=== PATIENT | male | born 1970 | race African-American/Black ===

== ENCOUNTER 2017-01-06 15:49 | Outpatient (CLI) | payer OTHER ==
--- NOTE | 2017-01-06 17:19 | ULT ---
BILATERAL RENAL ULTRASOUND WITH DOPPLER: Date: 01/06/17 HISTORY: Essential hypertension. FINDINGS: The right kidney measures 11.3 cm in length and the left kidney measures 11.4 cm in length. There is an 8.0 mm cyst in the right kidney. No hydronephrosis is seen on either side. Cortical echogenicity and thickness is otherwise normal. The peak systolic velocity in the right renal artery measures 84 cm/second and the left renal artery measures 126 cm/second. The renal artery to aortic ratio measures 0.57 on the right and 0.86 on the left. Resistive indices measure 0.75 on the right and 0.70 on the left. IMPRESSION: 1. Right renal cyst. 2. No sonographic evidence of hemodynamically significant renal artery stenosis. POS: [facility]
== END 2017-01-06 15:50 | disposition home or self-care (01) ==
LOC: ULT 15:49
PROVIDERS: ATTEND Family Medicine
DX: I10 Essential (primary) hypertension (principal); N28.1 Cyst of kidney, acquired
CPT/HCPCS: 76700; 76770

== ENCOUNTER 2017-04-20 10:59 | Emergency (ER) | payer OTHER ==
[2017-04-20] MEDS ORDERED: Nitroglycerin 2% Ointment 1 INCH/1 GM Packet ONE (12:10)
--- NOTE | 2017-04-20 12:19 | RAD ---
PORTABLE CHEST: Date: 04/20/17 PROVIDED CLINICAL HISTORY: Chest pain. FINDINGS: Comparison made with study dated 12/08/14. Evaluation is limited by patient body habitus. The cardiac silhouette remains enlarged. No focal cons olidation, pleural fluid, or pneumothorax apparent. IMPRESSION: Cardiomegaly without evidence for an acute cardiopulmonary process. POS: [facility]
[2017-04-20 12:23] LABS: #Basophils 0.1 thou/uL (0.0-0.2); #Eosinphils 0.2 thou/uL (0.0-0.7); #Lymphocytes 2.3 thou/uL (1.20-3.40); #Monocytes 0.6 thou/uL (0.11-0.59); #Neutrophils 4.3 thou/uL (1.40-6.50); %Basophils 1.6 % (0.0-1.0); %Eosinophils 2.7 % (0.0-10.0); %Lymphocytes 30.7 % (21.0-51.0); %Monocytes 7.4 % (0.0-10.0); %Neutrophils 57.6 % (42.0-75.0); Hemoglobin 13.8 g/dL (14.0-18.0); Mean Corpuscular HGB CONC 32.4 g/dL (32.0-36.0); Mean Corpuscular Hemoglobin 29.7 pg (27.0-31.0); Mean Corpuscular Volume 91.5 fl (80.0-94.0); Mean Platelet Volume 7.8 fL (7.4-10.4); Platelet Count 269 thou/uL (130-400); RBC Distribution Width 10.9 % (11.5-14.5); Red Blood Cell (RBC) Count 4.64 mill/uL (4.70-6.10); White Blood Cell (WBC) Count 7.4 thou/uL (4.8-10.8)
[2017-04-20 12:29] LABS: Anion Gap 12 mmol/L (10-20); BUN (Urea Nitrogen) 14 mg/dL (8.9-20.6); CK (CPK) 473 U/L (30-200); CRP (Inflammatory) 0.83 mg/dL (= or < 0.5); Calc. Creatinine Clearance 0 mL/min (70-130); Calcium 8.9 mg/dL (7.8-10.44); Carbon Dioxide 29 mmol/L (22-29); Chloride 102 mmol/L (98-107); Estimated GFR-MDRD Greater than 90; Glucose 226 mg/dL (70-105); Lipase 20 U/L (8-78); Potassium 3.3 mmol/L (3.5-5.1); Sodium 140 mmol/L (136-145)
--- NOTE | 2017-04-20 12:29 | RAD ---
LEFT FORELEG RADIOGRAPHS TWO VIEWS: Date: 04-20-17 Provided Clinical History: Left leg pain and swelling. FINDINGS: There is no evidence for fracture or other acute osseous abnormality. 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 The soft tissues appear somewhat lucent overlying the posterior aspe ct of the calcaneus with several nonspecific foci of increased density. IMPRESSION: No evidence for an acute osseous abnormality. POS: [facility]
[2017-04-20 12:31] LABS: CKMB 4.9 ng/mL (0-6.6); Troponin I 0.053 ng/mL (< 0.028)
[2017-04-20] MEDS ORDERED: Lisinopril 10 MG TAB ONE (12:55)
[2017-04-20] MEDS ORDERED: Ketorolac Tromethamine 60 MG/2 ML VIAL ONE (12:56)
[2017-04-20 13:59] LABS: Troponin I 0.063 ng/mL (< 0.028)
[2017-04-20] MEDS ORDERED: cloNIDine 0.1 MG TAB ONE (14:09)
== END 2017-04-20 14:58 | disposition home or self-care (01) ==
LOC: SCSER 10:59
DX: E11.622 Type 2 diabetes mellitus with other skin ulcer (principal); L97.929 Non-pressure chronic ulcer of unspecified part of left lower leg with unspecified severity; I10 Essential (primary) hypertension; F17.210 Nicotine dependence, cigarettes, uncomplicated; Z79.899 Other long term (current) drug therapy; Z79.891 Long term (current) use of opiate analgesic
CPT/HCPCS: 71045; 80048; 82550; 82553; 83605; 83690; 83880; 84484; 85025; 85652; 86140; 87040; 87070; 87077; 87186; 87205; 93005; 96372; J1885

== ENCOUNTER 2017-04-29 11:05 | Emergency (ER) | payer OTHER ==
[2017-04-29] MEDS ORDERED: Bacitracin Zinc 1 Packet ONE (12:07)
== END 2017-04-29 12:31 | disposition home or self-care (01) ==
LOC: SCSER 11:05
DX: E11.622 Type 2 diabetes mellitus with other skin ulcer (principal); L97.929 Non-pressure chronic ulcer of unspecified part of left lower leg with unspecified severity; I10 Essential (primary) hypertension; F17.210 Nicotine dependence, cigarettes, uncomplicated; Z79.4 Long term (current) use of insulin; Z79.899 Other long term (current) drug therapy
CPT/HCPCS: 99282

== ENCOUNTER 2017-05-03 13:49 | Outpatient (CLI) | payer OTHER ==
--- NOTE | 2017-05-03 19:36 | HP ---
DATE OF SERVICE: 05/03/2017 HISTORY OF PRESENT ILLNESS: Mr. Syed Ordonez is a very pleasant 46-year-old gentleman who pres ents to the Wound Center for evaluation of an ulceration of the left lower leg. The patient states t hat the ulceration has been present for approximately 4 months. The patient states that an ultrasoun d of the left lower extremity was obtained at the time of a visit with Dr. Norbert Wheeler. Appare ntly, the patient has a followup visit with Dr. Wheeler at which time he will receive the results o f the left lower extremity ultrasound. The patient has no other complaints today. He denies any fev er or chills. PAST MEDICAL HISTORY: 1. Diabetes mellitus. 2. Hypertension. PAST SURGICAL HISTORY: Negative. MEDICATIONS: 1. Norvasc. 2. Cozaar. 3. Coreg. 4. HCTZ. 5. NovoLog insulin. ALLERGIES: No known diagnosed allergies. SOCIAL HISTORY: Significant for tobacco use for over 20 years. The patient states that he is curren tly smoking 1/4 of a pack of cigarettes per day. The patient states that he has smoked as much as 1 pack of cigarettes per day over this period of time. The patient admits to only the social consumpti on of alcohol. FAMILY HISTORY: Significant for diabetes mellitus. The patient states that his mother and sister we re both diagnosed with diabetes mellitus. Family history is also significant for coronary artery dis ease. The patient states that his mother was diagnosed with coronary artery disease. PHYSICAL EXAMINATION: VITAL SIGNS: Temperature 97.9, pulse 84, respirations 19, blood pressure 226/118. Accu-Chek 276. GENERAL: A 46-year-old gentleman sitting on chair in examination room in no acute distress. HEENT: Normocephalic, atraumatic. NECK: No nuchal rigidity. CHEST: Clear to auscultation. CARDIAC: Regular rate and rhythm. ABDOMEN: Soft. EXTREMITIES: An ulceration of the left lower leg is present which measures approximately 3.3 x 2.5 c m. Granulation tissue is visible within the wound margins. Necrotic and nonviable tissue present wi thin the wound margins was debrided with an excisional full-thickness debridement with the use of sci ssors. No purulent drainage is associated with the wound. No erythema of the skin surrounding the w ound is present. No maceration of the skin of the periwound is noted. A dorsalis pedis pulse is pal pable on the left. Edema of the left foot and lower leg is present on exam today. NEUROLOGIC: Grossly nonfocal. ASSESSMENT AND PLAN: 1. Chronic venous hypertension with ulceration. Silverlon, Webril, and the 3M Coban two-layer compr ession system will be applied to the ulceration today. No antibiotics will be prescribed today based upon the appearance of the wound. I will see Mr. Ordonez again in one week. The patient has been as ked to keep the compression wrap clean and dry until his return visit to the Wound Center in 1 week. The patient understands and is in agreement with the preceding treatment plan. The patient has been given a release in order to return to work. 2. Diabetes mellitus. The patient's Accu-Chek in clinic today is 276. The patient has been told th at for optimal wound healing, his blood glucoses should remain below 150. 3. Hypertension. The patient states that he has nifedipine at home for use as needed for elevated b lood pressures. The patient has been advised to present to the Emergency Department. The patient de clines evaluation and treatment in the emergency department today. He states he will take p.o. nifed ipine at home as previously prescribed for elevated blood pressures. He states he will also contact his primary care physician, Dr. Vang in regard to his blood pressure obtained in clinic today.
[2017-05-05] MEDS ORDERED: Sodium Chloride 0.9% 15 ML NEB ONE (15:51)
[2017-05-05] MEDS ORDERED: Lidocaine 2% Jelly 5 ML TUBE ONE (15:51)
== END 2017-05-03 13:50 | disposition home or self-care (01) ==
LOC: WCC 13:49
PROVIDERS: ATTEND Family Medicine
DX: I87.312 Chronic venous hypertension (idiopathic) with ulcer of left lower extremity (principal); L97.929 Non-pressure chronic ulcer of unspecified part of left lower leg with unspecified severity; E11.622 Type 2 diabetes mellitus with other skin ulcer; I10 Essential (primary) hypertension
CPT/HCPCS: 11042; 36416; 99203; G0463

== ENCOUNTER 2017-05-10 11:36 | Outpatient (CLI) | payer OTHER ==
--- NOTE | 2017-05-10 14:39 | PRG ---
DATE OF SERVICE: 05/10/2017 HISTORY: Mr. Sunday Ordonez is a very pleasant 46-year-old gentleman who presents to the Wound Ce nter for evaluation of an ulceration of the left lower leg. The patient stated at the time of his in itial presentation to the Wound Center that the ulceration had been present for approximately 4 month s. At the time the patient's initial visit to the Wound Center, Silverlon, Webril, and 3M Coban 2 la gali compression system were applied to the left lower leg ulceration. The patient reports slippage o f his compression wrap. He has no other complaints today. He denies any fever or chills. PHYSICAL EXAMINATION: VITAL SIGNS: Temperature 98.2, pulse 89, respirations 19, blood pressure 214/132. Accu-Chek 123. EXTREMITIES: An ulceration of the left lower leg is present which measures approximately 3.0 x 3.2 c m. The dimensions of the wound at the time of the patient's last visit were approximately 3.3 x 2.5 cm. Granulation tissue is visible within the wound margins. Necrotic and nonviable tissue present w ithin the wound margins was debrided with an excisional full-thickness debridement with the use of sc issors. No purulent drainage is associated with the wound. No erythema of the skin surrounding the wound is present. No maceration of the skin of the periwound is noted. No significant edema of the left foot is present on exam today. ASSESSMENT AND PLAN: 1. Chronic venous hypertension with ulceration. Silverlon, ABD, Webril, and Coban 2-layer compressi on system will be applied to the ulceration today. I will see Mr. Ordonez again in one week. The pat ient again has been asked to keep the compression wrap clean and dry until his return visit to the [facility] 1 week from today. Mr. Ordonez understands and is in agreement with the preceding treatmen t plan. Again, the patient has been given a release in order to return to work. The patient has als o been given a prescription for Tylenol #30 one to two p.o. q.4-6 hours p.r.n. pain. 2. Diabetes mellitus. The patient's Accu-Chek in clinic today is 123. The patient has been reminde d that for optimal wound healing, his blood glucoses should remain below 150. 3. Hypertension. Again, the patient has been advised to present to the Emergency Department after h is clinic visit today. I have told the patient should he decides not to present to the Emergency Dep artment today after his clinic visit, he should contact his primary care physician, Dr. Vang in regard to the elevated blood pressures recorded at the time of his clinic visits to the Wound Center . The patient states he will consider contacting his primary care physician in regard to the elevate d blood pressures recorded at the time of his clinic visits.
== END 2017-05-10 11:37 | disposition home or self-care (01) ==
LOC: WCC 11:36
PROVIDERS: ATTEND Family Medicine
DX: I87.312 Chronic venous hypertension (idiopathic) with ulcer of left lower extremity (principal); E11.9 Type 2 diabetes mellitus without complications; I10 Essential (primary) hypertension
CPT/HCPCS: 11042; 36416

== ENCOUNTER 2017-05-18 14:26 | Inpatient (IN) | payer OTHER ==
[2017-05-18 15:15] LABS: #Basophils 0.1 thou/uL (0.0-0.2); #Eosinphils 0.2 thou/uL (0.0-0.7); #Lymphocytes 2.9 thou/uL (1.20-3.40); #Monocytes 0.7 thou/uL (0.11-0.59); #Neutrophils 5.2 thou/uL (1.40-6.50); %Basophils 1.6 % (0.0-1.0); %Eosinophils 2.3 % (0.0-10.0); %Lymphocytes 31.6 % (21.0-51.0); %Monocytes 7.9 % (0.0-10.0); %Neutrophils 56.6 % (42.0-75.0); Hemoglobin 14.6 g/dL (14.0-18.0); Mean Corpuscular HGB CONC 34.1 g/dL (32.0-36.0); Mean Corpuscular Hemoglobin 31.8 pg (27.0-31.0); Mean Corpuscular Volume 93.5 fl (80.0-94.0); Mean Platelet Volume 7.4 fL (7.4-10.4); Platelet Count 304 thou/uL (130-400); RBC Distribution Width 11.4 % (11.5-14.5); Red Blood Cell (RBC) Count 4.57 mill/uL (4.70-6.10); White Blood Cell (WBC) Count 9.2 thou/uL (4.8-10.8)
[2017-05-18 15:38] LABS: ALT (SGPT) 17 U/L (8-55); AST (SGOT) 22 U/L (5-34); Albumin 3.8 g/dL (3.5-5.0); Alkaline Phosphatase 59 U/L (40-150); Anion Gap 12 mmol/L (10-20); BUN (Urea Nitrogen) 12 mg/dL (8.9-20.6); Bilirubin, Total 0.8 mg/dL (0.2-1.2); CK (CPK) 491 U/L (30-200); Calc. Creatinine Clearance 0 mL/min (70-130); Calcium 8.8 mg/dL (7.8-10.44); Carbon Dioxide 28 mmol/L (22-29); Chloride 101 mmol/L (98-107); Estimated GFR-MDRD Greater than 90; Globulin 3.9 g/dL (2.4-3.5); Glucose 119 mg/dL (70-105); Potassium 3.4 mmol/L (3.5-5.1); Protein, Total 7.7 g/dL (6.0-8.3); Sodium 138 mmol/L (136-145)
[2017-05-18 15:43] LABS: CKMB 6.6 ng/mL (0-6.6); Troponin I 0.056 ng/mL (< 0.028)
[2017-05-18] MEDS ORDERED: Ibuprofen 800 MG TAB ONE (17:01)
[2017-05-18] MEDS ORDERED: Labetalol HCl 100 MG/20 ML VIAL ONE (18:57)
[2017-05-18] MEDS ORDERED: Acetaminophen 650 MG Suppository PR PRN (20:27)
[2017-05-18] MEDS ORDERED: Bisacodyl 5 MG TAB PO PRN (20:27)
[2017-05-18] MEDS ORDERED: Acetaminophen 325 MG TAB PO PRN (20:27)
[2017-05-18] MEDS ORDERED: cloNIDine 0.1 MG TAB PO PRN (20:31)
[2017-05-18] MEDS ORDERED: Dextrose 50% Abboject 50 ML SYRINGE SLOW IVP PRN (20:31)
[2017-05-18] MEDS ORDERED: Dextrose 5% in Water 1,000 ML IV PRN (20:31)
[2017-05-18] MEDS ORDERED: HumaLOG 300 UNITS/3 ML VIAL SC PRN (20:31)
[2017-05-18] MEDS ORDERED: hydrALAZINE 20 MG/ML VIAL SLOW IVP PRN (20:31)
[2017-05-18] MEDS ORDERED: Labetalol HCl 100 MG/20 ML VIAL SLOW IVP PRN (20:32)
[2017-05-18] MEDS ORDERED: Potassium Chloride 20 MEQ TAB PO SCH (20:45)
--- NOTE | 2017-05-18 21:23 | HP ---
PRIMARY CARE PHYSICIAN: Mack Vang M.D. CHIEF COMPLAINT: High blood pressure. HISTORY OF PRESENT ILLNESS: Mr. Ordonez is a pleasant 46-year-old gentleman who was seen at [facility] on 05/18/2017 after he was sent to the emergency room [facility]. He reports that he has a family history of malignant hypertension. His blood pressure has also been elevated and constantly his systolic blood pressure is in the 200+ range. He started seeing cardiolo gist, Dr. Wheeler about a month ago. He has been compliant with his medications and is currently o n Coreg and Cozaar. I note that he was seen in the [facility] on 05/10/2017. At that time, he was found to have e levated blood pressure. He was advised to follow up with his primary care physician if the blood pre ssure continues to be elevated. He went to the [facility]ound Care Clinic again today. His blood pressure wa s found to be elevated. He was sent to the emergency room for further management of the blood pressu re. He had his dressing change schedule for today, but did not get it done. He denies any chest pain or shortness of breath. He denies any fevers or chills. He denies any naus ea or vomiting. REVIEW OF SYSTEMS: The following complete review of systems was negative, unless otherwise mentioned in the HPI or below: Constitutional: Weight loss or gain, ability to conduct usual activities. Skin: Rash, itching. Eyes: Double vision, pain. ENT/Mouth: Nose bleeding, neck stiffness, pain, tenderness. Cardiovascular: Palpitations, dyspnea on exertion, orthopnea. Respiratory: Shortness of breath, wheezing, cough, hemoptysis, fever or night sweats. Gastrointestinal: Poor appetite, abdominal pain, heartburn, nausea, vomiting, constipation, or diarr hea. Genitourinary: Urgency, frequency, dysuria, nocturia. Musculoskeletal: Pain, swelling. Neurologic/Psychiatric: Anxiety, depression. Allergy/Immunologic: Skin rash, bleeding tendency. PAST MEDICAL HISTORY: Significant for diabetes mellitus type 2 and hypertension. PAST SURGICAL HISTORY: None. SOCIAL HISTORY: The patient smokes half a pack of cigarettes a day. He uses marijuana occasionally. He drinks alcohol rarely. FAMILY HISTORY: Significant for malignant hypertension. ALLERGIES: No known drug allergies. CURRENT MEDICATIONS: Include Tylenol No. 3 p.r.n., Coreg 6.25 mg daily, Cozaar 25 mg 2 times a day, clonidine 0.1 mg as needed, and Novolin 70/30 insulin 34 units 2 times a day. PHYSICAL EXAMINATION: GENERAL: On examination, Mr. Ordonez is awake and alert, not in acute distress. VITAL SIGNS: Blood pressure is 241/149, pulse is 85, he is breathing at rate of 19 and saturating 96 % on room air. He is afebrile. He is obese. EYES: No scleral icterus. No conjunctival pallor. Funduscopic exam through an undilated pupil was unremarkable. ENT: Moist mucosal membranes, no oropharyngeal erythema or exudates. NECK: Supple, nontender, normal range of movement, trachea is midline. RESPIRATORY: Accessory muscles of breathing are not active. Chest wall movements are symmetric bila terally. Lungs are clear to auscultation without wheeze, rhonchi or crepitations. CARDIOVASCULAR: S1 and S2 are heard, regular. Peripheral pulses palpable. No carotid bruit, no per icardial rub. ABDOMEN: Soft, nontender, bowel sounds heard, no hepatomegaly, no splenomegaly. NEUROLOGIC: Cranial nerves II-XII are intact. Deep tendon reflexes are 2+. PSYCHIATRIC: Normal mood, normal affect, patient is oriented to person, place, and time. SKIN: He has dressing over the left hand. EXTREMITIES: He has bilateral lower extremity edema. MUSCULOSKELETAL: Power is 5/5 in all 4 extremities. LABORATORY DATA AND IMAGING: Mr. Ordonez's labs and investigations were reviewed. I reviewed his mini ctrocardiogram, which showed normal sinus rhythm, with T-wave flattening in the inferior-lateral lead s. Laboratory investigations show an unremarkable CBC, normal sodium, decreased potassium of 3.4, in determinate troponin I of 0.060, elevated creatine kinase of 491 and an unremarkable liver profile. ASSESSMENT AND PLAN: Mr. Ordonez is a pleasant 46-year-old gentleman who was seen at [facility] on 05/18/2017. His problem list includes: 1. Hypertensive urgency: Mr. Ordonez is presenting with hypertensive urgency. He reports that his b lood pressure has been elevated for several months. He will be admitted to the hospital and treated with p.r.n. antihypertensives as well as scheduled antihypertensives once the doses are clarified. C ardiology Service will also be consulted for help with managing his malignant hypertension. He will likely benefit from further workup, including polysomnography studies. 2. Diabetes mellitus: The patient will be started on Accu-Cheks and insulin sliding scale. 3. Elevated troponin: He has indeterminate troponin I and is asymptomatic. However, he is also jose g betic. I am requesting a stress test to rule out coronary artery disease. 4. Tobacco abuse: The patient has been counseled regarding tobacco cessation. We will start him on nicotine replacement therapy. 5. Hypokalemia: Replace potassium. 6. Marijuana use: The patient has been counseled against recreational drug use. Many thanks for allowing me to participate in your patient's care. Please feel free to contact me wi th any questions or concerns. LEVEL OF RISK: High. LEVEL OF COMPLEXITY: High.
[2017-05-18 22:00] VITALS: BMI 19.2
[2017-05-18] MEDS ORDERED: Nicotine 14 MG PATCH TD SCH (23:00)
[2017-05-19 05:25] LABS: #Basophils 0.1 thou/uL (0.0-0.2); #Lymphocytes 1.2 thou/uL (1.20-3.40); #Monocytes 0.5 thou/uL (0.11-0.59); #Neutrophils 7.1 thou/uL (1.40-6.50); %Basophils 0.7 % (0.0-1.0); %Eosinophils 0.4 % (0.0-10.0); %Lymphocytes 13.1 % (21.0-51.0); %Monocytes 5.7 % (0.0-10.0); %Neutrophils 80.1 % (42.0-75.0); Hemoglobin 14.5 g/dL (14.0-18.0); Mean Corpuscular HGB CONC 33.3 g/dL (32.0-36.0); Mean Corpuscular Hemoglobin 31.3 pg (27.0-31.0); Mean Corpuscular Volume 93.9 fl (80.0-94.0); Mean Platelet Volume 7.7 fL (7.4-10.4); Platelet Count 300 thou/uL (130-400); RBC Distribution Width 11.5 % (11.5-14.5); Red Blood Cell (RBC) Count 4.65 mill/uL (4.70-6.10); White Blood Cell (WBC) Count 8.8 thou/uL (4.8-10.8)
[2017-05-19 05:36] LABS: Anion Gap 12 mmol/L (10-20); BUN (Urea Nitrogen) 16 mg/dL (8.9-20.6); Calc. Creatinine Clearance 89 mL/min (70-130); Calcium 9.2 mg/dL (7.8-10.44); Carbon Dioxide 26 mmol/L (22-29); Chloride 101 mmol/L (98-107); Estimated GFR-MDRD Greater than 90; Glucose 200 mg/dL (70-105); Potassium 3.2 mmol/L (3.5-5.1); Sodium 136 mmol/L (136-145)
[2017-05-19 08:04] LABS: Troponin I 0.076 ng/mL (< 0.028)
--- NOTE | 2017-05-19 08:27 | CON ---
DATE OF CONSULTATION: 05/18/2017 REASON FOR CONSULTATION: Malignant hypertension. REFERRING PROVIDER: Dr. Lerner. HISTORY OF PRESENT ILLNESS: Mr. Ordonez is a very pleasant 46-year-old gentleman who has been evaluat ed in the office one month ago. He was seen for hypertension. He states he was having wound care ev aluation and was found to be hypertensive. No chest pain or pressure noted. No shortness of breath. Given his hypertension, it was recommended to proceed to the emergency room. He was then subsequen tly admitted. Recently while in the office, he was placed on amlodipine, Coreg, and hydrochlorothiazide. Unfortuna tely at this point, those medications are not on his MAR. PAST MEDICAL HISTORY: Hypertension, diabetes mellitus. ALLERGIES: None. MEDICATIONS: Amlodipine 5 mg q.a.m., doxazosin, hydrochlorothiazide 25 mg b.i.d., Coreg 6.25 b.i.d., and losartan 50 daily. SOCIAL HISTORY: No current alcohol use. Positive tobacco use. REVIEW OF SYSTEMS: Ten-point review of systems is reviewed and is as above, otherwise negative. PHYSICAL EXAMINATION: GENERAL: Patient is a pleasant male who is in no acute distress. The patient appears his stated age . VITAL SIGNS: Blood pressure 149/100, pulse 96, temperature 98.4. NEUROLOGIC: The patient is alert and oriented times 3 with no focal neurologic deficits. HEENT: Sclerae without icterus. Mouth has moist mucous membranes with normal pallor. NECK: No JVD. Carotid upstroke brisk. No bruits bilaterally. LUNGS: Clear to auscultation with unlabored respirations. BACK: No scoliosis or kyphosis. CARDIAC: Regular rate and rhythm with normal S1 and S2. No S3 or S4 noted. No significant rubs, mu rmurs, thrills, or gallops noted throughout the precordium. PMI is not displaced. There is no amanda ternal heave. ABDOMEN: Soft, nontender, nondistended. No peritoneal signs present. No hepatosplenomegaly. No ab normal striae. EXTREMITIES: 2+ femoral and 2+ dorsalis pedis pulses. No cyanosis, clubbing, or edema. SKIN: No gross abnormalities. X-RAY FINDINGS: EKG normal sinus rhythm with ST-T wave changes suggesting ischemia versus LVH. This is unchanged from previous EKG one month ago. IMPRESSION: Malignant hypertension. RECOMMENDATIONS: At this point, we will restart hydrochlorothiazide, losartan, beta ashwin therapy and ARB. We will continue to make adjustments if needed. He has no current symptoms suggesting ronaldo na. At this point, seems imperative to adjust blood pressure medication for better blood pressure co ntrol. Otherwise, I have no recommendations.
[2017-05-19] MEDS ORDERED: Amlodipine 5 MG TAB PO SCH (09:00)
[2017-05-19] MEDS ORDERED: Hydrochlorothiazide 25 MG TAB PO SCH (09:00)
[2017-05-19] MEDS ORDERED: Carvedilol 6.25 MG TAB PO SCH (09:00)
[2017-05-19] MEDS ORDERED: Aspirin 325 MG TAB PO SCH (09:00)
[2017-05-19] MEDS ORDERED: Enoxaparin Sodium 40 MG/0.4 ML SYRINGE SC SCH (09:00)
[2017-05-19] MEDS ORDERED: Losartan 25 MG TAB PO SCH (11:00)
[2017-05-19 11:27] VITALS: BP 178/113; TEMP 98.5
--- NOTE | 2017-05-19 15:29 | DIS ---
DATE OF ADMISSION: 05/18/2017 DATE OF DISCHARGE: 05/19/2017 DISCHARGE DIAGNOSES: 1. Hypertensive urgency, resolved. 2. Hypertension, labile. 3. Diabetes mellitus type 2, insulin requiring. 4. Elevated troponin secondarily to #1/demand ischemia. 5. Tobacco use. 6. Hypokalemia, mild. 7. Left lower extremity chronic venous stasis ulcer. CONSULTATION: Dr. Wheeler with Cardiology Service. PERTINENT LABORATORY DATA AND X-RAY FINDINGS: Potassium ranged between 3.2-3.4, creatinine ranged be tween 0.83-0.95, estimated GFR greater than 90. LFTs within normal limits. Total CK 491. Troponin I ranged between 0.056-0.076, albumin 3.8. CBC within normal limits. HOSPITAL COURSE: Patient was admitted to the telemetry unit after initially presenting with hyperten sive urgency with systolics greater than 200. The patient was initiated on his home medication regim en to include Coreg and Cozaar and titrated on his blood pressure regimen during the hospital course. The patient was noted with elevated systolic blood pressures while receiving wound care to the left lower extremity since 05/10/2017. The patient was noted with overall improved blood pressure trend and would likely we will need additional titration of his antihypertensive regimen on an ongoing basi s after discharge. The patient overall remained clinically stable during the hospital course without chest pain or shortness of breath. Telemetry monitoring showed sinus mechanism without evidence of acute arrhythmia or dysrhythmia. The patient overall clinically stable and ready for discharge on . DISCHARGE MEDICATIONS: 1. Tylenol #3 300 mg/30 mg 1-2 tabs p.o. q.6 hours p.r.n. pain. 2. Norvasc 10 mg 1 tab p.o. daily. 3. Coreg 6.25 mg p.o. b.i.d. 4. Clonidine 0.1 mg p.o. as needed for systolic greater than or equal to 170. 5. Hydrochlorothiazide 25 mg 1 tab p.o. daily. 6. NPH insulin 70/30, 34 units subcutaneously b.i.d. 7. Cozaar 25 mg 1 tab p.o. daily. FOLLOWUP: The patient may follow up with his primary care provider, Dr. Mack Vang within 7 days of discharge. The patient may follow up with the Wound Care Clinic weekly. CONDITION ON DISCHARGE: Stable. ACTIVITY: Ad diana. SPECIAL INSTRUCTIONS: May return to work duties on 05/19/2017. DIET: Heart healthy and ADA. CODE STATUS: FULL. DISPOSITION: Home 05/19/2017. Total time preparing and coordinating discharge is 34 minutes.
--- NOTE | 2017-06-17 17:45 | EKG ---
Test Reason : Blood Pressure : / mmHG Vent. Rate : 092 BPM Atrial Rate : 092 BPM P-R Int : 140 ms QRS Dur : 102 ms QT Int : 378 ms P-R-T Axes : 047 -40 057 degrees QTc Int : 467 ms Normal sinus rhythm Possible Left atrial enlargement Left axis deviation Left ventricular hypertrophy Nonspecific T wave abnormality Prolonged QT No STEMI Abnormal ECG Confirmed by EMPERATRIZ POOLE, ARTHUR ([id number]), editorial writer BERNIE DAMON ([id number]) on 06/17/2017 5:45:32 PM Referred By: Confirmed By:ARTHUR AWAN MD
== END 2017-05-19 11:37 | disposition home or self-care (01) | DRG 305 ==
LOC: ERS 14:26 → 2NO 21:37
PROVIDERS: ADMIT Internal Medicine; ATTEND Internal Medicine
DX: I16.0 Hypertensive urgency (principal); I24.8 Other forms of acute ischemic heart disease; L97.929 Non-pressure chronic ulcer of unspecified part of left lower leg with unspecified severity; I10 Essential (primary) hypertension; E11.9 Type 2 diabetes mellitus without complications; Z79.4 Long term (current) use of insulin; E87.6 Hypokalemia; I83.029 Varicose veins of left lower extremity with ulcer of unspecified site; F17.210 Nicotine dependence, cigarettes, uncomplicated; F12.90 Cannabis use, unspecified, uncomplicated
CPT/HCPCS: 36415; 36416; 80048; 80053; 82553; 84484; 85025; 93005; 94760; 96374; 96375; 99406; A4216; J0360; J1650

== ENCOUNTER 2017-05-19 12:14 | Outpatient (CLI) | payer OTHER | END 2017-05-19 12:15 | disposition home or self-care (01) | LOC: WCC 12:14 | PROVIDERS: ATTEND Family Medicine | DX: I87.322 Chronic venous hypertension (idiopathic) with inflammation of left lower extremity (principal) | CPT/HCPCS: 29581 ==

== ENCOUNTER 2017-05-23 11:52 | Outpatient (CLI) | payer OTHER ==
[~2017-05-23 11:52] MED LIST: Sodium Chloride 0.9% 15 ML NEB ONE
== END 2017-05-23 11:53 | disposition home or self-care (01) ==
LOC: WCC 11:52
PROVIDERS: ATTEND Family Medicine
DX: I87.312 Chronic venous hypertension (idiopathic) with ulcer of left lower extremity (principal)
CPT/HCPCS: 29581; A4218

== ENCOUNTER 2017-05-31 11:13 | Outpatient (CLI) | payer OTHER ==
--- NOTE | 2017-05-31 12:15 | PRG ---
DATE OF SERVICE: 05/31/2017 HISTORY: Mr. Syed Ordonez is a very pleasant 46-year-old gentleman, who presents to the Wound Center for evaluation of an ulceration of the left lateral lower leg. The patient stated at the time of his initial presentation to the Wound Center that the ulceration had been present for approximate ly 4 months. At the time of the patient's initial visit to the Wound Center, Silverlon, Webril, and the 3M Coban 2-layer compression system were applied to the left lower leg ulceration. The patient h as been receiving dressing changes of Silverlon, Webril, and the 3M Coban 2-layer compression system here in the Wound Center. The patient has no complaints today. He denies any fever or chills. PHYSICAL EXAMINATION: VITAL SIGNS: Temperature 98.1, pulse 84, respirations 18, blood pressure 217/115. EXTREMITIES: An ulceration of the left lower leg is present, which measures approximately 3.1 x 3.8 cm. The dimensions of the wound at the time of the patient's visit on 05/10/2017 were approximately 3.0 x 3.2 cm. Granulation tissue is visible within the wound margins. Necrotic and nonviable tissue present within the wound margins was debrided with an excisional full-thickness debridement with the use of scissors. No purulent drainage is associated with the wound. No erythema of the skin surrou nding the wound is present. No maceration of the skin of the periwound is noted. A dorsalis pedis p ulse and posterior tibial pulse are both palpable on the left. No significant edema of the left foot is present on exam today. ASSESSMENT AND PLAN: 1. Chronic venous hypertension with ulceration, Xeroform gauze, ABD, Webril, and the 3M Coban 2-laye r compression system will be applied to the ulceration today. I will see Mr. Ordonez again in 1 week. Should the ulceration fail to heal in a timely manner, I have discussed with the patient considerat ion will need to be given to treatment with a bioengineered skin substitute, specifically Apligraf. The patient understands and is in agreement with the preceding treatment plan. 2. Diabetes mellitus. Accu-Cheks will be obtained at the time of the patient's clinic visits. The patient has been told that for optimal wound healing, his blood glucoses should remain below 150. 3. Hypertension. The patient states he has a followup appointment with his primary care provider in the near future.
== END 2017-05-31 11:14 | disposition home or self-care (01) ==
LOC: WCC 11:13
PROVIDERS: ATTEND Family Medicine
DX: I87.312 Chronic venous hypertension (idiopathic) with ulcer of left lower extremity (principal); E11.9 Type 2 diabetes mellitus without complications; I10 Essential (primary) hypertension

== ENCOUNTER 2017-06-09 11:08 | Outpatient (CLI) | payer OTHER ==
[2017-06-09] MEDS ORDERED: Sodium Chloride 0.9% 15 ML NEB ONE (14:28)
== END 2017-06-09 11:09 | disposition home or self-care (01) ==
LOC: WCC 11:08
PROVIDERS: ATTEND Family Medicine
DX: I87.312 Chronic venous hypertension (idiopathic) with ulcer of left lower extremity (principal); L97.829 Non-pressure chronic ulcer of other part of left lower leg with unspecified severity
CPT/HCPCS: 29581; 36416; A4218

== ENCOUNTER 2017-06-14 13:16 | Outpatient (CLI) | payer OTHER ==
[~2017-06-14 13:16] MED LIST changes: +Lidocaine 2% Jelly 5 ML TUBE ONE
--- NOTE | 2017-06-14 18:00 | PRG ---
DATE OF SERVICE: 06/14/2017 HISTORY: Mr. Syed Ordonez is a very pleasant 46-year-old gentleman, who presents to the Wound Center for evaluation of an ulceration of the left lateral lower leg. The patient stated at the time of his initial presentation to the Wound Center that the ulceration had been present for approximate ly 4 months. At the time of the patient's initial presentation to the Wound Center, Silverlon, Webri l, and the 3M Coban 2 layer compression system were applied to the left lower leg ulceration. The pa tient received dressing changes of Silverlon, Webril, and 3m Coban 2 layer compression system here in the Wound Center on a weekly basis. More recently, the patient has been receiving dressing changes here in the Wound Center of Xeroform gauze, ABD, Webril, and 3m Coban 2 layer compression system. Mr Alison Ordonez has no complaints today. He denies any fever or chills. PHYSICAL EXAMINATION: VITAL SIGNS: Temperature 97.3, pulse 100, respirations 20, blood pressure 139/84. Accu-Chek 352. EXTREMITIES: An ulceration of the left lower leg is present, which measures approximately 4.3 x 2.9 cm. The dimensions of the wound at the time of the patient's visit on 05/31/2017 were approximately 3.1 x 3.8 cm. Granulation tissue is present within the wound margins. Necrotic and nonviable tissue present within the wound margins was debrided with an excisional full-thickness debridement. No pur ulent drainage is associated with the wound. No erythema of the skin surrounding the wound is presen t. No maceration of the skin of the periwound is noted. A dorsalis pedis pulse and a posterior tibi al pulse are both palpable on the left. No significant edema of the left foot is present on exam tod ay. ASSESSMENT AND PLAN: 1. Chronic venous hypertension with ulceration. Xeroform gauze, ABD, Webril, and 3m Coban 2-layer c ompression system will be applied to the ulceration today. The patient is to return to the Wound [facility] ter in 1 week for a dressing change also of Xeroform gauze, ABD, Webril, and 3M Coban 2 layer faviola evan system. I will see Mr. Ordonez again in two weeks. Because the ulceration has been present for over 4 weeks despite treatment with the serial application of compression wraps and because the patie nt has a palpable dorsalis pedis and posterior tibial pulses on the left, I have explained to Mr. Bonilla rubio, he is a suitable candidate for treatment with a bioengineered skin substitute, specifically Apli suki. At the time of the patient's visit in 2 weeks, consideration will be given to Apligraf placeme nt. 2. Diabetes mellitus. Patient's Accu-Chek in clinic today is 352. The patient has been told that f or optimal wound healing, his blood glucoses should remain below 150. 3. Hypertension.
== END 2017-06-14 13:17 | disposition home or self-care (01) ==
LOC: WCC 13:16
PROVIDERS: ATTEND Family Medicine
DX: I87.312 Chronic venous hypertension (idiopathic) with ulcer of left lower extremity (principal); E11.9 Type 2 diabetes mellitus without complications; I10 Essential (primary) hypertension
CPT/HCPCS: 11042; 36416; A4218

== ENCOUNTER 2017-06-21 11:49 | Outpatient (CLI) | payer OTHER ==
[2017-06-21] MEDS ORDERED: Sodium Chloride 0.9% 15 ML NEB ONE (16:39)
== END 2017-06-21 11:50 | disposition home or self-care (01) ==
LOC: WCC 11:49
PROVIDERS: ATTEND Family Medicine
DX: I87.312 Chronic venous hypertension (idiopathic) with ulcer of left lower extremity (principal); L97.929 Non-pressure chronic ulcer of unspecified part of left lower leg with unspecified severity
CPT/HCPCS: 29581; A4218

== ENCOUNTER 2017-06-27 10:14 | Outpatient (CLI) | payer OTHER ==
--- NOTE | 2017-06-27 12:19 | ULT ---
LEFT LOWER EXTREMITY VENOUS DOPPLER WITH SPECTRAL ANALYSIS AND COLOR FLOW EVALUATION: Date: 06/27/17 HISTORY: Left lower extremity edema for 2 weeks. Bandages on lower leg. TECHNIQUE: Piedra scale, color flow, Doppler evaluation, and spectral analysis of the left lower extremity venous structures is performed with 2D imaging. The left lower extremity common femoral, superficial femoral , popliteal, posterior tibial, most proximal greater saphenous, and profunda femoral veins are imaged . FINDINGS: The most distal posterior tibial vein is unable to be imaged due to overlying dressing material and b andages. There is otherwise normal lumen compressibility, flow, and augmentation in the visualized de ep venous structures of the left lower extremity. IMPRESSION: Nonvisualization of the distal left posterior tibial vein secondary to overlying dressing material an d bandages. There is otherwise no evidence of a deep venous thrombosis involving the visualized deep venous structures of the left lower extremity. POS: [facility]
== END 2017-06-27 10:15 | disposition home or self-care (01) ==
LOC: ULT 10:14
PROVIDERS: ATTEND Family Medicine
DX: R60.0 Localized edema (principal)

== ENCOUNTER 2017-06-28 08:26 | Outpatient (CLI) | payer OTHER | END 2017-06-28 08:27 | disposition home or self-care (01) | LOC: WCC 08:26 | PROVIDERS: ATTEND Family Medicine | DX: S81.802D Unspecified open wound, left lower leg, subsequent encounter (principal) | CPT/HCPCS: 29581 ==

== ENCOUNTER 2017-07-05 13:55 | Outpatient (CLI) | payer OTHER ==
--- NOTE | 2017-07-05 16:36 | PRG ---
DATE OF SERVICE: 07/05/2017 HISTORY: Mr. Syed Ordonez is a very pleasant 46-year-old gentleman who presents to the Wound Center for evaluation of an ulceration of the left lateral lower leg. The patient stated at the time of his initial presentation to the Wound Center that the ulceration had been present for approximately 4 months. At the time of the patient's initial presentation to the Wound Center, Silverlon, Webril, and the 3M Coban 2-layer compression system were applied to the left lower leg ulceration. The patient received dressing changes of Silverlon, Webril, and the 3M Coban 2-layer compression system here in the Wound Center on a weekly basis. More recently, the patient has been receiving dressing changes here in the Wound Center of Xeroform gauze, an ABD, Webril, and the 3M Coban 2-layer compression system. The patient has no complaints today. He denies any fever or chills. PHYSICAL EXAMINATION: VITAL SIGNS: Temperature 98.1, pulse 80, respirations 20, blood pressure 187/ 102. Accu-Chek 210. EXTREMITIES: An ulceration of the left lower leg is present which measures approximately 5.0 x 3.0 cm. The dimensions of the wound at the time of the patient's visit on 06/14/2017 were approximately 4.3 x 2.9 cm. Granulation tissue is present within the wound margins. Necrotic and nonviable tissue present within the wound margins was debrided with an excisional full-thickness debridement with the use of scissors. No purulent drainage is associated with the wound. No erythema of the skin surrounding the wound is present. No maceration of the skin of the periwound is noted. A dorsalis pedis pulse and a posterior tibial pulse are both palpable on the left. No significant edema of the left foot is present on exam today. ASSESSMENT AND PLAN: 1. Chronic venous hypertension with ulceration. Xeroform gauze, an ABD, Kerlix , and an Raz bandage will be applied to the ulceration today. Again, I have reiterated to the patient that because the ulceration has been present for over 4 weeks despite treatment with the serial application of compression wraps and because the patient has palpable dorsalis pedis and posterior tibial pulses on the left, he is a suitable candidate for treatment with a bioengineered skin substitute, specifically Apligraf. Arrangements will be made for Apligraf placement. The patient states he has been told by Dr. Wheeler that he is not a suitable candidate for venous ablation. A copy of the records from the patient's last visit with Dr. Wheeler will be obtained. Arrangements will also be made for the home delivery of dressing supplies. 2. Lymphedema tarda. The patient continues to have edema of the left lower leg despite elevation and the serial application of compression wraps. The patient also has hyperpigmentation of the skin of the left lower leg. Arrangements will be made for the initiation of in-home lymphedema therapy. 3. Diabetes mellitus. The patient's Accu-Chek in clinic today is 210. The patient has been reminded that for optimal wound healing, his blood glucoses should remain below 150. 4. Hypertension. MTDD
[2017-07-05] MEDS ORDERED: Lidocaine 2% Jelly 5 ML TUBE ONE (17:54)
== END 2017-07-05 13:56 | disposition home or self-care (01) ==
LOC: WCC 13:55
PROVIDERS: ATTEND Family Medicine
DX: I87.312 Chronic venous hypertension (idiopathic) with ulcer of left lower extremity (principal); E11.9 Type 2 diabetes mellitus without complications; I10 Essential (primary) hypertension; I89.0 Lymphedema, not elsewhere classified
CPT/HCPCS: 11042

== ENCOUNTER 2017-10-18 12:53 | Outpatient (CLI) | payer OTHER ==
--- NOTE | 2017-10-18 14:04 | PRG ---
DATE OF SERVICE: 10/18/2017 HISTORY: Mr. Syed Ordonez is a very pleasant 46-year-old gentleman who presents to the Wound C enter for evaluation of an ulceration of the left lateral lower leg. Since the patient was last seen in the Wound Center, Mr. Ordonez has been placed on p.o. Bactrim after being seen in the [facility] which he is still taking as prescribed. The patient was subsequently prescribed a course of clindamycin by Dr. Vang which he was instructed to begin after completing the course of Bactri m. The patient states that he has received a pneumatic pump for in-home lymphedema treatment. He st ates that the pain associated with his ulceration, however precludes use of the pneumatic pump for 45 minutes on a daily basis. The patient states that he has an appointment with Dr. Wheeler on 11/13. The patient has no other complaints today. He denies any fever or chills. PHYSICAL EXAMINATION: VITAL SIGNS: Temperature 97.9, pulse 81, respirations 18, blood pressure 189/106. Accu-Chek 146. EXTREMITIES: An ulceration of the left lower leg is present which measures approximately 5.1 x 3.2 c m. The dimensions of the wound at the time of the patient's visit on 07/05/2017 were approximately 5 .0 x 3.0 cm. Granulation tissue is present within the wound margins. Necrotic and nonviable tissue present within the wound margins was debrided with an excisional full-thickness debridement with the use of scissors. No purulent drainage is associated with the wound. No erythema of the skin surroun ding the wound is present. No maceration of the skin of the periwound is noted. No significant italia a of the left foot or lower leg is present on exam today. ASSESSMENT AND PLAN: 1. Chronic venous hypertension with ulceration. Dressing changes of Medihoney, 4s x 4s, ABD, Kerlix , and an Raz bandage will be initiated today. These dressing changes are to be performed on a daily basis after cleansing and irrigation. The patient will be seen by Dr. Wheeler on 11/13/2017. The patient states he will inquire as to whether he is a candidate for venous ablation on the left at the time of his visit with Dr. Wheeler. A referral will also be sent to Dr. Wheeler for evaluation for venous ablation. The patient has been reminded to continue Bactrim and clindamycin as previously prescribed. I will see Mr. Ordonez again after evaluation and any necessary treatment by Dr. Daniels ez is complete. The patient understands and is in agreement with the preceding treatment plan. 2. Lymphedema tarda. The patient has acquired a pneumatic pump for in-home lymphedema therapy. 3. Diabetes mellitus. The patient's Accu-Chek in clinic today is 146. The patient has been reminde d that for optimal wound healing, his blood glucoses should remain below 150. 4. Hypertension.
== END 2017-10-18 12:54 | disposition home or self-care (01) ==
LOC: WCC 12:53
PROVIDERS: ATTEND Family Medicine
DX: I87.312 Chronic venous hypertension (idiopathic) with ulcer of left lower extremity (principal); E11.622 Type 2 diabetes mellitus with other skin ulcer; L97.929 Non-pressure chronic ulcer of unspecified part of left lower leg with unspecified severity; I89.0 Lymphedema, not elsewhere classified; I10 Essential (primary) hypertension
CPT/HCPCS: 11042

== ENCOUNTER 2017-11-08 10:31 | Outpatient (CLI) | payer OTHER ==
--- NOTE | 2017-11-08 11:26 | PRG ---
DATE OF SERVICE: 11/08/2017 HISTORY: Mr. Syed Ordonez is a very pleasant 46-year-old gentleman who presents to the Wound C enter for evaluation of an ulceration of the left lateral lower leg. At the time of the patient's visit, Mr. Miles was placed on dressing changes of Medihoney. The patient states that because o f pain associated with the application of Medihoney to his wound, he has been unable to perform the p receding dressing changes. Instead the patient states he has been applying antibiotic ointment follo wed by Telfa secured with tape to his wounds. He also states that he has been unable to utilize his pneumatic pump for in-home lymphedema treatment because of pain associated with his ulceration. More over, the patient states that he has been unable to utilize an Raz bandage at the time of dressing ch anges for compression because he is required to wear boots at work which preclude the use of an Raz b andage. Again, the patient states that he has an appointment with Dr. Wheeler on 11/13/2017. PHYSICAL EXAMINATION: VITAL SIGNS: Temperature 98.1, pulse 80, respirations 22, blood pressure 192/96. Accu-Chek 210. EXTREMITIES: An ulceration of the left lower leg is present which measures approximately 8.3 x 4.0 c m. The dimensions of the wound at the time of the patient's visit on 10/18/2017 were approximately 5 .1 x 3.2 cm. Granulation tissue is present within the wound margins. Eschar is present at the perip monica of the wound. No grossly purulent drainage is associated with the wound. No erythema of the sk in surrounding the wound is present. No maceration of the skin of the periwound is noted. Edema of the left foot and lower leg is present on exam today. ASSESSMENT AND PLAN: 1. Chronic venous hypertension with ulceration. Dressing changes of antibiotic ointment followed by an ABD, Kerlix, and an Raz bandage are to be performed on a daily basis after cleansing and irrigati on. The patient will be seen by Dr. Wheeler on 11/13/2017 for evaluation for venous ablation on th e left. I have emphasized to the patient that he should utilize an Raz bandage for edema management as much as possible. I have also recommended compression garments for use in conjunction with the pr eceding dressing changes. I will see Mr. Ordonez again after evaluation and any necessary treatment b y Dr. Wheeler is complete. The patient understands and is in agreement with the preceding treatmen t plan. 2. Lymphedema tarda. The patient previously acquired a pneumatic pump for in-home lymphedema therap y. 3. Diabetes mellitus. The patient's Accu-Chek in clinic today is 210. The patient has been reminde d that for optimal wound healing, his blood glucoses should remain below 150. 4. Hypertension.
== END 2017-11-08 10:32 | disposition home or self-care (01) ==
LOC: WCC 10:31
PROVIDERS: ATTEND Family Medicine
DX: I87.312 Chronic venous hypertension (idiopathic) with ulcer of left lower extremity (principal); E11.622 Type 2 diabetes mellitus with other skin ulcer; L97.929 Non-pressure chronic ulcer of unspecified part of left lower leg with unspecified severity; I89.0 Lymphedema, not elsewhere classified; I10 Essential (primary) hypertension
CPT/HCPCS: 29581

== ENCOUNTER 2018-06-06 17:35 | Inpatient (IN) | payer OTHER, SELFPAY ==
[2018-06-06 18:56] LABS: #Basophils 0.1 thou/uL (0.0-0.2); #Eosinphils 0.1 thou/uL (0.0-0.7); #Lymphocytes 2.4 thou/uL (1.20-3.40); #Monocytes 0.6 thou/uL (0.11-0.59); #Neutrophils 5.5 thou/uL (1.40-6.50); %Basophils 0.9 % (0.0-1.0); %Eosinophils 1.5 % (0.0-10.0); %Monocytes 6.9 % (0.0-10.0); %Neutrophils 62.7 % (42.0-75.0); Hemoglobin 14.1 g/dL (14.0-18.0); Mean Corpuscular HGB CONC 32.3 g/dL (32.0-36.0); Mean Corpuscular Hemoglobin 30.9 pg (27.0-31.0); Mean Corpuscular Volume 95.7 fL (78.0-98.0); Mean Platelet Volume 7.5 fL (7.4-10.4); Platelet Count 297 thou/uL (130-400); RBC Distribution Width 11.8 % (11.5-14.5); Red Blood Cell (RBC) Count 4.55 mill/uL (4.70-6.10); White Blood Cell (WBC) Count 8.7 thou/uL (4.8-10.8)
[2018-06-06 19:15] LABS: ALT (SGPT) 16 U/L (8-55); AST (SGOT) 17 U/L (5-34); Albumin 3.6 g/dL (3.5-5.0); Alkaline Phosphatase 70 U/L (40-150); Anion Gap 15 mmol/L (10-20); BUN (Urea Nitrogen) 19 mg/dL (8.9-20.6); Bilirubin, Total 0.6 mg/dL (0.2-1.2); Calc. Creatinine Clearance 0 mL/min (70-130); Calcium 9.2 mg/dL (7.8-10.44); Carbon Dioxide 26 mmol/L (22-29); Chloride 97 mmol/L (98-107); Estimated GFR-MDRD 54; Globulin 3.6 g/dL (2.4-3.5); Glucose 260 mg/dL (70-105); Protein, Total 7.2 g/dL (6.0-8.3); Sodium 135 mmol/L (136-145)
[2018-06-06] MEDS ORDERED: Clindamycin/D5W 900 MG in Premix Bag 1 BAG IVPB ONE (20:15)
[2018-06-06] MEDS ORDERED: Morphine 4 MG/ML VIAL ONE ×2 (20:19→21:28)
[2018-06-06] MEDS ORDERED: Clindamycin/D5W 900 mg/50 ml Premix Bag ONE (20:20)
[2018-06-06] MEDS ORDERED: Piperacillin/Tazobactam 4.5 GM VIAL ONE (20:20)
[2018-06-06] MEDS ORDERED: Ondansetron PF 4 MG/2 ML Vial ONE (20:20)
[2018-06-06] MEDS ORDERED: cloNIDine 0.1 MG TAB ONE (22:12)
--- NOTE | 2018-06-06 22:22 | RAD ---
LEFT TIBIA AND FIBULA: 06/06/18 AP and lateral views obtained. INDICATIONS: Leg wound. Pain to left lower extremity. No evidence of fracture. No focal lytic or blastic lesion. There are mild degenerative changes at the tibiotalar joint. IMPRESSION: No acute findings. POS: [facility]
[2018-06-06 23:07] LABS: Lactic Acid 1.3 mmol/L (0.5-2.2)
[2018-06-07] MEDS ORDERED: hydrALAZINE 20 MG/ML VIAL ONE (00:24)
[2018-06-07] MEDS ORDERED: Acetaminophen 325 MG TAB PO PRN (02:41)
[2018-06-07] MEDS ORDERED: Ondansetron PF 4 MG/2 ML Vial IVP PRN (02:41)
[2018-06-07] MEDS ORDERED: Ondansetron ODT 4 MG TAB SL PRN (02:41)
[2018-06-07] MEDS: Nicotine 14 MG PATCH TD SCH (02:45)
[2018-06-07 03:12] VITALS: BMI 39.9
[2018-06-07 06:04] LABS: #Basophils 0.1 thou/uL (0.0-0.2); #Eosinphils 0.2 thou/uL (0.0-0.7); #Lymphocytes 2.4 thou/uL (1.20-3.40); #Monocytes 0.7 thou/uL (0.11-0.59); #Neutrophils 3.6 thou/uL (1.40-6.50); %Basophils 1.1 % (0.0-1.0); %Eosinophils 2.8 % (0.0-10.0); %Monocytes 9.3 % (0.0-10.0); %Neutrophils 51.9 % (42.0-75.0); Hemoglobin 12.9 g/dL (14.0-18.0); Mean Corpuscular HGB CONC 31.4 g/dL (32.0-36.0); Mean Corpuscular Hemoglobin 30.3 pg (27.0-31.0); Mean Corpuscular Volume 96.7 fL (78.0-98.0); Mean Platelet Volume 7.1 fL (7.4-10.4); Platelet Count 272 thou/uL (130-400); RBC Distribution Width 11.6 % (11.5-14.5); Red Blood Cell (RBC) Count 4.25 mill/uL (4.70-6.10)
[2018-06-07] MEDS ORDERED: Dextrose 50% Abboject 50 ML SYRINGE IVP PRN (06:12)
[2018-06-07] MEDS ORDERED: HumaLOG 300 UNITS/3 ML VIAL SC PRN (06:12)
[2018-06-07] MEDS ORDERED: Dextrose 5% in Water 1,000 ML IV PRN (06:12)
[2018-06-07 06:22] LABS: Anion Gap 10 mmol/L (10-20); BUN (Urea Nitrogen) 15 mg/dL (8.9-20.6); Calc. Creatinine Clearance 145 mL/min (70-130); Calcium 8.4 mg/dL (7.8-10.44); Carbon Dioxide 30 mmol/L (22-29); Chloride 101 mmol/L (98-107); Estimated GFR-MDRD 79; Glucose 183 mg/dL (70-105); Potassium 3.4 mmol/L (3.5-5.1); Sodium 138 mmol/L (136-145)
[2018-06-07] MEDS ORDERED: Potassium Chloride 20 MEQ TAB PO SCH (07:30)
[2018-06-07] MEDS: Amlodipine 5 MG TAB PO SCH (08:19)
[2018-06-07] MEDS: Hydrochlorothiazide 25 MG TAB PO SCH (08:19)
[2018-06-07] MEDS: hydrALAZINE 20 MG/ML VIAL SLOW IVP PRN ×3 (08:20→22:11)
[2018-06-07] MEDS ORDERED: Losartan 25 MG TAB PO SCH ×2 (09:00→18:15)
[2018-06-07] MEDS ORDERED: Carvedilol 6.25 MG TAB PO SCH (09:00)
[2018-06-07] MEDS: HumuLIN 70/30 (300 UNITS/3 ML VIAL) SC SCH ×2 (09:17→22:11)
[2018-06-07] MEDS: Piperacillin/Tazobactam 3.375 GM in Sodium Chloride 0.9% 100 ML IVPB SCH ×3 (11:29→23:30)
[2018-06-07] MEDS: HumaLOG 300 UNITS/3 ML VIAL SC PRN (16:25)
[2018-06-07] MEDS: traMADol HCl 50 MG TAB PO PRN (16:27)
--- NOTE | 2018-06-07 17:59 | ULT ---
ULTRASOUND WITH DOPPLER DUPLEX VENOUS LOWER EXTREMITY LEFT 06/07/18 CPT: 89257 ICD-10-PCS: B54D HISTORY: Edema. TECHNIQUE: Color flow Doppler, spectral waveform analysis of pulsed Doppler, and begum-scale imaging with faviola evan and augmentation, were used to evaluate the left common femoral, femoral, popliteal, posterior t ibial, and superficial femoral, veins; and the proximal portions of the profunda femoral and greater saphenous, veins. FINDINGS: There is appropriate compressibility and flow within the imaged deep vein system left lower extremity . Incidental note of mildly prominent lymph nodes in the left inguinal region. IMPRESSION: 1. No DVT of left lower extremity is demonstrated. 2. Mild prominence of left inguinal lymph nodes. Correlate clinically. POS: [facility]
--- NOTE | 2018-06-07 21:23 | HP ---
CHIEF COMPLAINT: Left lower extremity pain. HISTORY OF PRESENT ILLNESS: The patient is a 47-year-old male with a past medical history of diabetes and hypertension, who presents to the hospital with complaints of worsening left hand wound. The patient states that he had opening on his left lateral hand area many years ago, however, which healed up and had a small little opening which did not heal. The patient states that last year he kept going to Wound Care and his wound was doing really well. However, the patient lost insurance and was unable to go to Wound Care since November 2017. The patient stated that little site started to grow and got worse to the point that he does have a pretty significant open wound which he is trying to take care of it at home. The patient did mention that for the past one week he has noticed some foul odor coming from the wound site, which was normally not present. He also noticed significant worsening pain on the left foot compared to his normal pain. The patient denies any fevers or chills, so he came into the ER for further evaluation. PAST MEDICAL HISTORY: 1. Diabetes. 2. Hypertension. PAST SURGICAL HISTORY: He denies any surgical history. SOCIAL HISTORY: The patient was a former smoker, currently does not smoke. Occasional alcohol use. No drug use. He is a full code. Lives with his family. ALLERGIES: NO KNOWN DRUG ALLERGIES. MEDICATIONS: As of the following; 1. Losartan 25 mg daily. 2. Hydrochlorothiazide 25 mg daily. 3. Carvedilol 6.25 b.i.d. 4. Amlodipine 10 mg daily. 5. Clonidine 0.1 mg p.o. daily p.r.n. 6. Insulin 34 units subcu b.i.d. REVIEW OF SYSTEMS: All negative except for the ones mentioned above in HPI. PHYSICAL EXAMINATION: VITAL SIGNS: 97.6, 84, 18, 96% on room air, 162/87. GENERAL: He is awake, alert, and oriented x3. Does not appear in distress. CV: S1, S2 present. No murmurs, rubs, or gallops. ABDOMEN: Soft and nontender. Bowel sounds are present x2. RESPIRATORY: Lungs are clear to auscultation. No rhonchi or wheezes noted. EXTREMITIES: He does have +1 edema to his left lower extremity. He does have a significant open wound that appears to be like a stage II ulcer. He does have some minimal drainage. However, he does have Medihoney on, so it is very difficult to say if he has drainage. I was unable to palpate his pedal pulses, but his leg was very warm to touch. NEUROVASCULAR: There are no focal deficits noted. SKIN: As I mentioned, he does have that unhealed wound on his left lateral hand area. LABORATORY RESULTS: As of the following; WBC of 7.0, hemoglobin of 12.9, hematocrit of 41.1, platelets of 272. Sodium of 130, potassium of 3.4, BUN of 15, creatinine of 1.19, glucose of 183. His CRP was 1.89. He did have an x-ray of the tibia-fibula, which did not indicate any acute findings. ASSESSMENT AND PLAN: The patient is a very pleasant 47-year-old male who presents to the hospital with complaints of worsening left leg pain. 1. Acute on chronic left leg diabetic ulcer. We will start the patient on some Zosyn. He does have some mild erythema around, however, not significant. Does not have significant leukocytosis. The patient states that he feels much better. We will also start wound therapy or wound care. The patient is trying to get insurance, so he can go to wound therapy. I do not think this wound requires any debridement. We will continue to monitor. We will also ask the nurse to check for Dopplers for the lower extremities. 2. Diabetes. We will continue the patient's home medications. 3. Deep venous thrombosis prophylaxis. We will put the patient on subcu heparin. 4. Hypertension. We will continue patient's blood pressure medication. We will have to be titrate it up because his blood pressure has been kind of uncontrolled. Job ID: [id number]
[2018-06-07] MEDS: Carvedilol 6.25 MG TAB PO SCH (22:10)
[2018-06-08] MEDS: Nicotine 14 MG PATCH TD SCH (00:39)
[2018-06-08] MEDS: Acetaminophen 325 MG TAB PO PRN (00:53)
[2018-06-08] MEDS ORDERED: cloNIDine 0.2 MG TAB PO SCH (01:15)
[2018-06-08] MEDS: Piperacillin/Tazobactam 3.375 GM in Sodium Chloride 0.9% 100 ML IVPB SCH ×3 (05:48→17:24)
[2018-06-08] MEDS: Amlodipine 5 MG TAB PO SCH (09:34)
[2018-06-08] MEDS: Carvedilol 6.25 MG TAB PO SCH ×2 (09:35→22:09)
[2018-06-08] MEDS: cloNIDine 0.2 MG TAB PO SCH ×2 (09:36→22:10)
[2018-06-08] MEDS: HumuLIN 70/30 (300 UNITS/3 ML VIAL) SC SCH ×2 (09:36→22:08)
[2018-06-08] MEDS: Hydrochlorothiazide 25 MG TAB PO SCH (09:37)
[2018-06-08] MEDS: Losartan 25 MG TAB PO SCH (09:37)
--- NOTE | 2018-06-08 11:54 | PDOC.PN ---
- Subjective Encounter Start Date: 06/08/18 Encounter Start Time: 07:00 -: old records requested/rev Patient seen and examined. No new complaints. No overnight events - Objective MAR Reviewed: Yes Vital Signs & Weight: Vital Signs (12 hours) Temp Pulse Resp BP BP BP BP 06/08/18 09:36 176/109 H 06/08/18 09:35 176/109 H 06/08/18 09:34 83 176/109 H 06/08/18 08:00 97.4 F L 83 18 176/109 H 06/08/18 04:23 98.5 F 88 18 134/68 06/08/18 03:20 87 16 173/88 H 06/08/18 02:28 93 184/104 H 06/08/18 01:50 93 184/104 H 06/08/18 01:06 186/105 H 06/08/18 00:32 98.5 F 96 18 186/105 H Pulse Ox 06/08/18 09:36 06/08/18 09:35 06/08/18 09:34 06/08/18 08:00 97 06/08/18 04:23 96 06/08/18 03:20 06/08/18 02:28 06/08/18 01:50 06/08/18 01:06 06/08/18 00:32 97 Weight Admit Weight 294 lb 5.991 oz Weight 294 lb 7.896 oz I&O: 06/07/18 06/08/18 06/09/18 06:59 06:59 06:59 Intake Total 1250 2496.0 Balance 1250 2496.0 Result Diagrams: 06/07/18 05:52 06/07/18 05:52 Additional Labs: Accuchecks 06/08/18 06/07/18 06/07/18 05:36 20:13 16:07 POC Glucose 84 135 H 175 H 06/07/18 11:42 POC Glucose 105 Phys Exam - Physical Examination Constitutional: NAD HEENT: PERRLA, moist MMs, sclera anicteric Neck: no JVD, supple Respiratory: no wheezing, no rales, no rhonchi Cardiovascular: RRR, no significant murmur, no rub Gastrointestinal: soft, non-tender, no distention, positive bowel sounds Musculoskeletal: no edema, pulses present wound left leg Neurological: non-focal, normal sensation, moves all 4 limbs Lymphatic: no nodes Psychiatric: normal affect, A&O x 3 Skin: no rash, normal turgor Dx/Plan (1) Bacteremia due to Streptococcus Code(s): R78.81 - BACTEREMIA; B95.5 - UNSP STREPTOCOCCUS THE CAUSE OF DISEASES CLASSD ELSWHR Status: Acute (2) Diabetic ulcer of left lower leg Code(s): E11.622 - TYPE 2 DIABETES MELLITUS WITH OTHER SKIN ULCER; L97.929 - NON -PRS CHRONIC ULC UNSP PRT OF L LOW LEG W UNSP SEVERITY Status: Acute (3) Hypokalemia Code(s): E87.6 - HYPOKALEMIA Status: Acute (4) Diabetes type 2, controlled Code(s): E11.9 - TYPE 2 DIABETES MELLITUS WITHOUT COMPLICATIONS Status: Chronic (5) Hypertension Code(s): I10 - ESSENTIAL (PRIMARY) HYPERTENSION Status: Chronic (6) Tobacco abuse Code(s): Z72.0 - TOBACCO USE Status: Chronic - Plan cont current plan of care, plan discussed w/ family * medication reviewed as below * symptomatic treatment * wound care * change to inpt status * continue zosyn * consult ID. Review of Systems - Review of Systems ENT: negative: Ear Pain, Ear Discharge, Nose Pain, Nose Discharge, Nose Congestion, Mouth Pain, Mouth Swelling, Throat Pain, Throat Swelling, Other Respiratory: negative: Cough, Dry, Shortness of Breath, Hemoptysis, SOB with Excertion, Pleuritic Pain, Sputum, Wheezing Cardiovascular: negative: chest pain, palpitations, orthopnea, paroxysmal nocturnal dyspnea, edema, light headedness, other Gastrointestinal: negative: Nausea, Vomiting, Abdominal Pain, Diarrhea, Constipation, Melena, Hematochezia, Other Genitourinary: negative: Dysuria, Frequency, Incontinence, Hematuria, Retention , Other Musculoskeletal: negative: Neck Pain, Shoulder Pain, Arm Pain, Back Pain, Hand Pain, Leg Pain, Foot Pain, Other Skin: negative: Rash, Lesions, Bruno, Bruising, Other - Medications/Allergies Allergies/Adverse Reactions: Allergies Allergy/AdvReac Type Severity Reaction Status Date / Time No Known Drug Allergies Allergy Verified 12/08/14 16:00 Medications: Current Medications Acetaminophen (Tylenol) 650 mg PO Q6H PRN PRN Reason: Fever>101/(Mi/Mod/Sev) Pain Last Admin: 06/08/18 00:53 Dose: 650 mg Amlodipine Besylate (Norvasc) 10 mg PO DAILY [facility] Last Admin: 06/08/18 09:34 Dose: 10 mg Carvedilol (Coreg) 12.5 mg PO BID [facility] Last Admin: 06/08/18 09:35 Dose: 12.5 mg Clonidine (Catapres) 0.2 mg PO BID [facility] Last Admin: 06/08/18 09:36 Dose: 0.2 mg Dextrose/Water (Dextrose 50%) 25 gm IVP PRN PRN PRN Reason: HYPOGLYCEMIA PROTOCOL Glucagon (Glucagon) 1 mg IM PRN PRN PRN Reason: HYPOGLYCEMIA PROTOCOL Hydralazine HCl (Apresoline) 10 mg SLOW IVP Q4H PRN PRN Reason: SBP > 180 Last Admin: 06/07/18 22:11 Dose: 10 mg Hydrochlorothiazide (Hydrochlorothiazide) 25 mg PO DAILY [facility] Last Admin: 06/08/18 09:37 Dose: 25 mg Dextrose/Water (D5w) 1,000 mls @ 0 mls/hr IV INF PRN PRN Reason: HYPOGLYCEMIA PROTOCOL Piperacillin Sod/Tazobactam (Sod 3.375 gm/ Sodium Chloride) 100 mls @ 200 mls/ hr IVPB Q6HR [facility] Last Admin: 06/08/18 05:48 Dose: 100 mls Insulin Human Isoph/Insulin Regular (Humulin 70/30) 34 units SC BID [facility] Last Admin: 06/08/18 09:36 Dose: 34 units Insulin Human Lispro (Humalog) 0 units SC .MILD SLIDING SCALE PRN; Protocol PRN Reason: MILD SLIDING SCALE Last Admin: 06/07/18 16:25 Dose: 2 unit Insulin Human Lispro (Humalog) 0 units SC .BEDTIME SLIDING SC PRN; Protocol PRN Reason: BEDTIME SLIDING SCALE Labetalol HCl (Labetalol Hcl) 10 mg SLOW IVP Q4H PRN PRN Reason: BP > 180/100 Last Admin: 06/08/18 02:28 Dose: 10 mg Losartan Potassium (Cozaar) 50 mg PO DAILY [facility] Last Admin: 06/08/18 09:37 Dose: 50 mg Nicotine (Nicoderm Patch) 14 mg TD Q24HR [facility] Last Admin: 06/08/18 00:39 Dose: 14 mg Sodium Chloride (Flush - Normal Saline) 10 ml IVF Q12HR [facility] Last Admin: 06/08/18 09:38 Dose: 10 ml Sodium Chloride (Flush - Normal Saline) 10 ml IVF PRN PRN PRN Reason: Saline Flush Last Admin: 06/08/18 02:29 Dose: 10 ml Tramadol HCl (Ultram) 50 mg PO Q6H PRN PRN Reason: Mild-Moderate Pain (1-5) Last Admin: 06/07/18 16:27 Dose: 50 mg
[2018-06-08] MEDS: HumaLOG 300 UNITS/3 ML VIAL SC PRN ×2 (12:41→17:24)
[2018-06-09] MEDS: Nicotine 14 MG PATCH TD SCH (00:13)
[2018-06-09] MEDS: Piperacillin/Tazobactam 3.375 GM in Sodium Chloride 0.9% 100 ML IVPB SCH ×4 (00:16→18:06)
[2018-06-09 07:42] LABS: #Eosinphils 0.1 thou/uL (0.0-0.7); #Lymphocytes 1.6 thou/uL (1.20-3.40); #Monocytes 0.7 thou/uL (0.11-0.59); #Neutrophils 7.5 thou/uL (1.40-6.50); %Basophils 0.5 % (0.0-1.0); %Eosinophils 0.7 % (0.0-10.0); %Lymphocytes 15.9 % (21.0-51.0); %Monocytes 7.1 % (0.0-10.0); %Neutrophils 75.8 % (42.0-75.0); Hemoglobin 14.5 g/dL (14.0-18.0); Mean Corpuscular HGB CONC 32.1 g/dL (32.0-36.0); Mean Corpuscular Volume 96.5 fL (78.0-98.0); Mean Platelet Volume 7.2 fL (7.4-10.4); Platelet Count 301 thou/uL (130-400); RBC Distribution Width 11.8 % (11.5-14.5); Red Blood Cell (RBC) Count 4.67 mill/uL (4.70-6.10); White Blood Cell (WBC) Count 9.9 thou/uL (4.8-10.8)
[2018-06-09 08:03] LABS: Anion Gap 12 mmol/L (10-20); BUN (Urea Nitrogen) 15 mg/dL (8.9-20.6); Calc. Creatinine Clearance 163 mL/min (70-130); Calcium 9.2 mg/dL (7.8-10.44); Carbon Dioxide 27 mmol/L (22-29); Chloride 99 mmol/L (98-107); Estimated GFR-MDRD Greater than 90; Glucose 66 mg/dL (70-105); Potassium 3.3 mmol/L (3.5-5.1); Sodium 135 mmol/L (136-145)
--- NOTE | 2018-06-09 09:29 | PDOC.PN ---
- Subjective Encounter Start Date: 06/09/18 Encounter Start Time: 07:00 Patient seen and examined. No new complaints. No overnight events - Objective MAR Reviewed: Yes Vital Signs & Weight: Vital Signs (12 hours) Temp Pulse Resp BP BP Pulse Ox 06/09/18 08:00 97.4 F L 76 18 192/118 H 98 06/08/18 22:10 176/109 H 06/08/18 22:09 176/109 H Weight Admit Weight 294 lb 5.991 oz Weight 294 lb 7.896 oz I&O: 06/08/18 06/09/18 06/10/18 06:59 06:59 06:59 Intake Total 2496.0 1200 Balance 2496.0 1200 Result Diagrams: 06/09/18 07:35 06/09/18 07:35 Additional Labs: Accuchecks 06/09/18 06/08/18 06/08/18 05:37 20:14 16:59 POC Glucose 127 H 146 H 210 H 06/08/18 12:26 POC Glucose 199 H Phys Exam - Physical Examination Constitutional: NAD HEENT: PERRLA, moist MMs, sclera anicteric Neck: no JVD, supple Respiratory: no wheezing, no rales, no rhonchi Cardiovascular: RRR, no significant murmur, no rub Gastrointestinal: soft, non-tender, no distention, positive bowel sounds Musculoskeletal: no edema, pulses present wound with dressing left leg Neurological: non-focal, normal sensation, moves all 4 limbs Lymphatic: no nodes Psychiatric: normal affect, A&O x 3 Skin: no rash, normal turgor Dx/Plan (1) Bacteremia due to Streptococcus Code(s): R78.81 - BACTEREMIA; B95.5 - UNSP STREPTOCOCCUS THE CAUSE OF DISEASES CLASSD ELSWHR Status: Acute (2) Diabetic ulcer of left lower leg Code(s): E11.622 - TYPE 2 DIABETES MELLITUS WITH OTHER SKIN ULCER; L97.929 - NON -PRS CHRONIC ULC UNSP PRT OF L LOW LEG W UNSP SEVERITY Status: Acute (3) Hypokalemia Code(s): E87.6 - HYPOKALEMIA Status: Acute (4) Diabetes type 2, controlled Code(s): E11.9 - TYPE 2 DIABETES MELLITUS WITHOUT COMPLICATIONS Status: Chronic (5) Hypertension Code(s): I10 - ESSENTIAL (PRIMARY) HYPERTENSION Status: Chronic (6) Tobacco abuse Code(s): Z72.0 - TOBACCO USE Status: Chronic - Plan cont current plan of care, continue antibiotics * medication reviewed as below * symptomatic treatment * continue zosyn * ID consulted * replace potassium * wound care. Review of Systems - Review of Systems ENT: negative: Ear Pain, Ear Discharge, Nose Pain, Nose Discharge, Nose Congestion, Mouth Pain, Mouth Swelling, Throat Pain, Throat Swelling, Other Respiratory: negative: Cough, Dry, Shortness of Breath, Hemoptysis, SOB with Excertion, Pleuritic Pain, Sputum, Wheezing Cardiovascular: negative: chest pain, palpitations, orthopnea, paroxysmal nocturnal dyspnea, edema, light headedness, other Gastrointestinal: negative: Nausea, Vomiting, Abdominal Pain, Diarrhea, Constipation, Melena, Hematochezia, Other Genitourinary: negative: Dysuria, Frequency, Incontinence, Hematuria, Retention , Other Musculoskeletal: negative: Neck Pain, Shoulder Pain, Arm Pain, Back Pain, Hand Pain, Leg Pain, Foot Pain, Other Skin: negative: Rash, Lesions, Bruno, Bruising, Other - Medications/Allergies Allergies/Adverse Reactions: Allergies Allergy/AdvReac Type Severity Reaction Status Date / Time No Known Drug Allergies Allergy Verified 12/08/14 16:00 Medications: Current Medications Acetaminophen (Tylenol) 650 mg PO Q6H PRN PRN Reason: Fever>101/(Mi/Mod/Sev) Pain Last Admin: 06/08/18 00:53 Dose: 650 mg Amlodipine Besylate (Norvasc) 10 mg PO DAILY [facility] Last Admin: 06/08/18 09:34 Dose: 10 mg Carvedilol (Coreg) 12.5 mg PO BID [facility] Last Admin: 06/08/18 22:09 Dose: 12.5 mg Clonidine (Catapres) 0.2 mg PO BID [facility] Last Admin: 06/08/18 22:10 Dose: 0.2 mg Dextrose/Water (Dextrose 50%) 25 gm IVP PRN PRN PRN Reason: HYPOGLYCEMIA PROTOCOL Glucagon (Glucagon) 1 mg IM PRN PRN PRN Reason: HYPOGLYCEMIA PROTOCOL Hydralazine HCl (Apresoline) 10 mg SLOW IVP Q4H PRN PRN Reason: SBP > 180 Last Admin: 06/07/18 22:11 Dose: 10 mg Hydrochlorothiazide (Hydrochlorothiazide) 25 mg PO DAILY [facility] Last Admin: 06/08/18 09:37 Dose: 25 mg Dextrose/Water (D5w) 1,000 mls @ 0 mls/hr IV INF PRN PRN Reason: HYPOGLYCEMIA PROTOCOL Piperacillin Sod/Tazobactam (Sod 3.375 gm/ Sodium Chloride) 100 mls @ 200 mls/ hr IVPB Q6HR [facility] Last Admin: 06/09/18 06:14 Dose: 100 mls Insulin Human Isoph/Insulin Regular (Humulin 70/30) 34 units SC BID [facility] Last Admin: 06/08/18 22:08 Dose: 34 units Insulin Human Lispro (Humalog) 0 units SC .MILD SLIDING SCALE PRN; Protocol PRN Reason: MILD SLIDING SCALE Last Admin: 06/08/18 17:24 Dose: 3 unit Insulin Human Lispro (Humalog) 0 units SC .BEDTIME SLIDING SC PRN; Protocol PRN Reason: BEDTIME SLIDING SCALE Labetalol HCl (Labetalol Hcl) 10 mg SLOW IVP Q4H PRN PRN Reason: BP > 180/100 Last Admin: 06/08/18 02:28 Dose: 10 mg Losartan Potassium (Cozaar) 50 mg PO DAILY [facility] Last Admin: 06/08/18 09:37 Dose: 50 mg Nicotine (Nicoderm Patch) 14 mg TD Q24HR [facility] Last Admin: 06/09/18 00:13 Dose: 14 mg Potassium Chloride (K-Dur) 40 meq PO ONE [facility] Sodium Chloride (Flush - Normal Saline) 10 ml IVF Q12HR [facility] Last Admin: 06/09/18 05:48 Dose: Not Given Sodium Chloride (Flush - Normal Saline) 10 ml IVF PRN PRN PRN Reason: Saline Flush Last Admin: 06/09/18 00:17 Dose: 10 ml Tramadol HCl (Ultram) 50 mg PO Q6H PRN PRN Reason: Mild-Moderate Pain (1-5) Last Admin: 06/07/18 16:27 Dose: 50 mg
[2018-06-09] MEDS: cloNIDine 0.2 MG TAB PO SCH ×2 (09:31→20:12)
[2018-06-09] MEDS: Carvedilol 6.25 MG TAB PO SCH ×2 (09:31→20:11)
[2018-06-09] MEDS: HumuLIN 70/30 (300 UNITS/3 ML VIAL) SC SCH ×2 (09:32→20:13)
[2018-06-09] MEDS: Hydrochlorothiazide 25 MG TAB PO SCH (09:32)
[2018-06-09] MEDS: Losartan 25 MG TAB PO SCH (09:32)
[2018-06-09] MEDS: Amlodipine 5 MG TAB PO SCH (09:32)
[2018-06-09] MEDS ORDERED: Potassium Chloride 20 MEQ TAB PO SCH (10:30)
[2018-06-09] MEDS: HumaLOG 300 UNITS/3 ML VIAL SC PRN (12:34)
[2018-06-09] MEDS: Acetaminophen 325 MG TAB PO PRN (12:36)
[2018-06-09] MEDS: traMADol HCl 50 MG TAB PO PRN ×2 (12:36→20:12)
[2018-06-09] MEDS: hydrALAZINE 20 MG/ML VIAL SLOW IVP PRN (15:56)
[2018-06-10] MEDS: Piperacillin/Tazobactam 3.375 GM in Sodium Chloride 0.9% 100 ML IVPB SCH ×3 (00:10→16:42)
--- NOTE | 2018-06-10 01:55 | CON ---
DATE OF CONSULTATION: 06/09/2018 REASON FOR CONSULTATION: Left leg wound and positive culture. HISTORY OF PRESENT ILLNESS: A 47-year-old with a history of type 2 diabetes, has had recurring wounds in the left lower extremity, previously have been managed by Dr. Lafleur with eventual healing, but now he has developed steady enlargement of the previously noted wound. He was not able to go back to wound care because of loss of his insurance. He eventually got to the point that he had to come to the emergency room, did not have any headaches. No visual symptoms, sore throat, odynophagia, dysphagia. No cough or sputum production. No chest pain. No abdominal pain or diarrhea. No genitourinary symptoms. No neurological symptoms. PAST MEDICAL HISTORY: Type 2 diabetes, hypertension, chronic wound to left leg with previous successful outcome after a protracted wound care under Dr. Lafleur's care and then this recurrence. PAST SURGICAL HISTORY: Negative. SOCIAL HISTORY: Former smoker. He is employed. Lives in the area with family. No drug use. No alcoholic beverages other than the occasional. ALLERGIES: NONE. FAMILY HISTORY: Noncontributory. CURRENT MEDICATIONS: Include, 1. Norvasc. 2. Coreg. 3. Catapres. 4. Hydrochlorothiazide. 5. Insulin. 6. Zosyn. PHYSICAL EXAMINATION: VITAL SIGNS: T-max 98.5, blood pressure 190/100, pulse 81, respirations 18, O2 saturation 93% to 97%. SKIN: Shows the wound in the left leg. It has somewhat rectangular shaped area, it is almost like trapezoid with granulation tissue at the base and some islands of skin in the middle. There is no undermining to speak off and it measures about 6 x 10 cm approximately. LYMPH NODES: There is no lymphadenopathy. HEENT: Noncontributory. NECK: No jugular vein distention. LUNGS: Symmetric. Clear breath sounds. HERAT: S1 and S2. Regular rate. No S3 or S4. ABDOMEN: Soft. Not distended or tender. : No genital abnormalities. EXTREMITIES: Pulses are 1+ in dorsalis pedis. He moves extremities equally. NEUROLOGIC: His cognitive function appears to be intact. LABORATORY DATA: White cell count was 8.7 and 9.9, hemoglobin 14.5, platelets 201,000. Creatinine 1.06. Bilirubin 0.6, AST 17, ALT 16, CRP 1.9, total protein 7.2, albumin 3.6. Vascular ultrasound with no deep vein thrombosis. Microbiology with polymicrobial collins from the surface of the wound and venous sample with alpha strep, not strep pneumoniae, this is on 1/2 sets of blood cultures. IMAGING STUDIES: No other imaging studies available at this point. ASSESSMENT: Type 2 diabetes with chronic wound, which had healed and now seems to have exacerbated. The patient came in with pain and drainage, now with this bacteremia. DISCUSSION: The wound itself has fairly benign appearance. I do not see acute inflammatory changes right now. The bacteremia is most likely a contaminant of the sample rather than true bacteremia, and I think he merits continuation of antimicrobial therapy for control of local infection. If he did have any, but the main component and future management will be resumption of wound care management probably with compression dressings. This wound is probably related to venous insufficiency or venous hypertension or chronic ulceration. Pyoderma gangrenosum would be in the differential diagnosis, but that is not likely malignancy or vasculitis is also unlikely in view of the previous history of complete healing with wound care. The organisms retrieved from the wound are likely colonizers of the surface rather than having a true pathogenic role. Since there was pain and some drainage, a combination of quinolone plus doxycycline or minocycline would be an option for outpatient treatment for few days after discharge. The mainstay of treatment again would be referral to wound care for compressive dressings. Job ID: [id number]
[2018-06-10] MEDS: Nicotine 14 MG PATCH TD SCH (05:45)
[2018-06-10 07:58] VITALS: TEMP 98.2
[2018-06-10] MEDS: Hydrochlorothiazide 25 MG TAB PO SCH (08:22)
[2018-06-10] MEDS: Carvedilol 6.25 MG TAB PO SCH (08:22)
[2018-06-10] MEDS: Losartan 25 MG TAB PO SCH (08:22)
[2018-06-10] MEDS: HumuLIN 70/30 (300 UNITS/3 ML VIAL) SC SCH (08:22)
[2018-06-10] MEDS: cloNIDine 0.2 MG TAB PO SCH (08:23)
[2018-06-10] MEDS: Amlodipine 5 MG TAB PO SCH (08:23)
[2018-06-10] MEDS: traMADol HCl 50 MG TAB PO PRN (08:26)
[2018-06-10 08:36] VITALS: BP 163/93
--- NOTE | 2018-06-10 09:48 | DIS ---
DATE OF ADMISSION: 06/08/2018 DATE OF DISCHARGE: 06/10/2018 PRIMARY CARE PHYSICIAN: Dr. Vang. DISCHARGE DISPOSITION: Home. PRIMARY DISCHARGE DIAGNOSES: 1. Bacteremia due to Streptococcus. 2. Diabetic ulcer of left lower extremity with superinfection. 3. Hypokalemia. SECONDARY DISCHARGE DIAGNOSES: 1. Tobacco abuse disorder. 2. Hypertension. 3. Diabetes type 2. 4. Morbid obesity. PRIMARY PROCEDURE/OPERATION: None. RADIOLOGICAL INVESTIGATION: Tibia-fibula x-ray negative for any osteomyelitis. Ultrasound negative for any DVT. SIGNIFICANT LABORATORY DATA: WBC 9.29, hemoglobin 14.5, and platelets 301. Sodium 135, potassium 3.3, creatinine 1.06. CRP 1.9. Wound culture grew Klebsiella, MRSA, and Citrobacter. Blood culture was positive for alpha Streptococcus. DISCHARGE MEDICATIONS: 1. Ciprofloxacin 500 mg p.o. b.i.d. for 7 days. 2. Doxycycline 100 mg p.o. b.i.d. for 7 days. 3. Tylenol No. 3 one or two tablets q.6 hourly p.r.n. for pain. 4. Coreg 6.25 mg b.i.d. 5. Clonidine 0.1 mg p.o. q.6 hourly p.r.n. for blood pressure more than 180. 6. Doxazosin 2 mg p.o. at bedtime. 7. Hydralazine 25 mg p.o. daily. 8. Losartan 25 mg p.o. daily. 9. Hydrochlorothiazide 25 mg p.o. daily. 10. Humulin 70/30 34 units subcu b.i.d. CONTRAINDICATION: None. CODE STATUS: Full code. INPATIENT PEN RIDER: Dr. Sotelo. TEST RESULT PENDING ON DISCHARGE: None. ALLERGIES: NO KNOWN DRUG ALLERGIES. DISCHARGE PLAN: Posthospital, the patient will follow up with Wound Care [facility] in our hospital on June 13, 2018. The patient will follow up with primary care physician in one week. HOSPITAL COURSE: A 47-year-old male with above-mentioned medical problem, who was admitted by Dr. Guevara. Please see her H and P for further details. The patient was admitted for wound over left lower extremity with surrounding mild tenderness. Wound was superinfected. Ultrasound was negative for any DVT in left leg and the x-ray tibia-fibula negative for any fracture or any osteomyelitis. The patient had wound culture, which grew polymicrobial as well as one blood culture was positive for Streptococcus. Dr. Sotelo recommended seven days of antibiotic therapy. The patient has outpatient wound care arranged from hospital. I have seen and examined the patient at bedside today. PHYSICAL EXAMINATION: VITAL SIGNS: Currently, temperature 98.2, pulse 71, respiratory rate 16, blood pressure 161/93, saturation 93% on room air, weight 294 pounds. GENERAL: The patient is currently alert, awake, no obvious acute distress. HEENT: Head; normocephalic and atraumatic. Eyes; pupils round, reactive to light. Extraocular muscle intact. ENT, oropharynx within normal limits. LUNGS: Clear. CARDIAC: S1 and S2 regular. No murmur. ABDOMEN: Soft and benign. EXTREMITIES: Wound covered with dressing on left leg. NEUROLOGIC: Nonfocal examination. All new medication prescription sent to his pharmacy. The patient is medically stable for discharge. This patient was initially admitted as observation status, but subsequently we changed to inpatient status. Job ID: [id number]
== END 2018-06-10 14:37 | disposition home or self-care (01) | DRG 638 ==
LOC: ERS 17:35 → ONC 06-07 01:19 → OBSVTOIN 06-08 11:51
PROVIDERS: ADMIT Hospitalist; ATTEND Hospitalist
DX: E11.622 Type 2 diabetes mellitus with other skin ulcer (principal); L97.828 Non-pressure chronic ulcer of other part of left lower leg with other specified severity; R78.81 Bacteremia; L08.9 Local infection of the skin and subcutaneous tissue, unspecified; E87.6 Hypokalemia; I10 Essential (primary) hypertension; E66.01 Morbid (severe) obesity due to excess calories; B95.5 Unspecified streptococcus as the cause of diseases classified elsewhere; B96.1 Klebsiella pneumoniae [K. pneumoniae] as the cause of diseases classified elsewhere; B95.62 Methicillin resistant Staphylococcus aureus infection as the cause of diseases classified elsewhere; B96.89 Other specified bacterial agents as the cause of diseases classified elsewhere; Z87.891 Personal history of nicotine dependence; Z79.4 Long term (current) use of insulin
CPT/HCPCS: 36415; 36416; 80048; 80053; 83605; 85025; 85652; 86140; 87040; 87070; 87077; 87149; 87186; 87205; 96361; 96365; 96366; 96367; 96368; 96375; 96376; J0360; J1642; J1815; J2270; J2405; J2543; J3370; J3490; J7050

== ENCOUNTER 2018-06-13 12:55 | Outpatient (CLI) | payer SELFPAY ==
--- NOTE | 2018-06-13 15:39 | PRG ---
DATE OF SERVICE: 06/13/2018 HISTORY: Mr. Syed Ordonez is a very pleasant 47-year-old gentleman, who presents to the Wound Center for evaluation of an ulceration of the left lateral lower leg. The patient was last seen in the Wound Center on 11/08/2017. The wound for which the patient was last seen healed completely. The ulceration now present developed in a region of the left lateral lower leg superior to the healed ulceration. The patient states that the ulceration, for which he was previously seen healed completely after being off work for a period of 3 months. The patient states that he has been performing dressing changes of Medihoney for the wound now present. He states that dressing changes of Medihoney were initiated during his last admission to [facility] for left lower extremity pain. The patient states that he was seen in consultation by Dr. Norbert Wheeler, who stated that venous ablation on the left was not warranted. The patient states that he still has his pneumatic pump for in-home lymphedema treatment. OBJECTIVE: VITAL SIGNS: Temperature 97.8, pulse 85, blood pressure 202/108. Accu-Chek 115. EXTREMITIES: An ulceration of the left lateral lower leg is present, which measures approximately 5.3 x 4.0 cm. Granulation tissue is present within the wound margins. Necrotic and nonviable tissue present within the wound margins was debrided with an excisional full-thickness debridement with the use of scissors. No purulent drainage is associated with the wound. No erythema of the skin surrounding the wound is present. No maceration of the skin of the periwound is noted. Edema of the left foot and lower leg is present on exam today. ASSESSMENT AND PLAN: 1. Chronic venous hypertension with ulceration. Dressing changes of Medihoney and Mepilex Border or Allevyn will be initiated today. These dressing changes are to be performed on a daily basis or alternatively every other day or three times per week after cleansing and irrigation. The patient states he will be performing his own dressing changes. The patient has been encouraged to utilize his pneumatic pump on the left on a consistent basis, he is also to utilize an Raz bandage for edema management. As per the patient's request, Mr. Ordonez will contact the clinic in order to schedule his next followup visit. 2. Lymphedema tarda. As stated above, the patient previously acquired a pneumatic pump for in-home lymphedema therapy. 3. Diabetes mellitus. The patient's Accu-Chek in clinic today is 115. The patient has been reminded that for optimal wound healing, his blood glucoses should remain below 150. 4. Hypertension. Job ID: [id number]
[2018-06-13] MEDS ORDERED: Sodium Chloride 0.9% 15 ML NEB ONE (18:00)
[2018-06-13] MEDS ORDERED: Lidocaine 2% 11 ML SYR ONE (18:00)
== END 2018-06-13 12:56 | disposition home or self-care (01) ==
LOC: WCC 12:55
PROVIDERS: ATTEND Family Medicine
DX: I87.312 Chronic venous hypertension (idiopathic) with ulcer of left lower extremity (principal); E11.622 Type 2 diabetes mellitus with other skin ulcer; L97.929 Non-pressure chronic ulcer of unspecified part of left lower leg with unspecified severity; I89.0 Lymphedema, not elsewhere classified
CPT/HCPCS: 11042; 11045; A4218

== ENCOUNTER 2018-09-12 08:45 | Outpatient (CLI) | payer BC, SELFPAY ==
[2018-09-12] MEDS ORDERED: Lidocaine 2% PF 100 mg/5 ml Syringe ONE (15:00)
[2018-09-12] MEDS ORDERED: Sodium Chloride 0.9% 15 ML NEB ONE (15:00)
--- NOTE | 2018-09-12 17:09 | PRG ---
DATE OF SERVICE: 09/12/2018 HISTORY: Mr. Syed Ordonez is a very pleasant 47-year-old gentleman, who presents to the Wound Center for evaluation of an ulceration of the left lateral lower leg. The patient states he has been performing dressing changes of Xeroform for the ulceration of his left lateral lower leg. He states that the ulceration improved in its appearance with dressing changes of Medihoney; however, the pain associated with the application of Medihoney to the wound bed was such that he was unable to continue these dressing changes. The patient also has a pneumatic pump for in-home lymphedema therapy, which he is unable to use because of pain associated with the ulceration when utilizing the lymphedema pump. The patient has no other complaints today. He denies any fever or chills. PHYSICAL EXAMINATION: VITAL SIGNS: Temperature 97.9, pulse 92, respirations 19, and blood pressure 189/103. Accu-Chek 159. EXTREMITIES: An ulceration of the left lateral lower leg is present, which measures approximately 7.5 x 3.9 cm. Granulation tissue is present within the wound margins. Necrotic and nonviable tissue present within the wound margins was debrided with an excisional full-thickness debridement with the use of scissors. No purulent drainage is associated with the wound. No erythema of the skin surrounding the wound is present. No maceration of the skin of the periwound is noted. Edema of the left foot and lower leg is present on exam today. A dorsalis pedis pulse is palpable on the left. ASSESSMENT AND PLAN: 1. Chronic venous hypertension with ulceration, dressing changes of Hydrofera Blue, followed by Mepilex border or Allevyn will be initiated today. These dressing changes are to be performed 3 times per week after cleansing and irrigation. The patient will be performing his own dressing changes. Arrangements will also be made for the home delivery of compression garments. The patient has also been encouraged to utilize his pneumatic pump on the left. I will discuss the treatment plan with Dr. Wheeler, specifically in regard to whether Mr. Ordonez is a candidate for venous ablation on the left. 2. Lymphedema tarda as stated above the patient previously acquired a pneumatic pump for in-home lymphedema therapy. 3. Diabetes mellitus. The patient's Accu-Chek in clinic today is 159. The patient has been reminded that for optimal wound healing his blood glucoses should remain below 150. 4. Hypertension. Job ID: [id number]
== END 2018-09-12 08:46 | disposition home or self-care (01) ==
LOC: WCC 08:45
PROVIDERS: ATTEND Family Medicine
DX: I87.312 Chronic venous hypertension (idiopathic) with ulcer of left lower extremity (principal); E11.622 Type 2 diabetes mellitus with other skin ulcer; L97.929 Non-pressure chronic ulcer of unspecified part of left lower leg with unspecified severity; I89.0 Lymphedema, not elsewhere classified; I10 Essential (primary) hypertension
CPT/HCPCS: 11042; 11045; 36416; A4218; J2001

== ENCOUNTER 2018-09-27 09:55 | Outpatient (CLI) | payer BC ==
--- NOTE | 2018-09-27 10:08 | PRG ---
DATE OF SERVICE: 09/27/2018 HISTORY: Mr. Syed Ordonez is a very pleasant 47-year-old gentleman, who presents to the Wound Center for evaluation of an ulceration of the left lateral lower leg. Since the patient's last visit, Mr. Ordonez has been performing dressing changes of Hydrofera Blue followed by Allevyn. He has been performing the preceding dressing changes in conjunction with the use of a compression garment. He states that he has been utilizing his compression garment consistently specifically on a daily basis. The patient has been seen in consultation by Dr. Wheeler. Since his last visit, the patient states that he may undergo iliac vein stenting by Dr. Wheeler. The patient has no other complaints today. He denies any fever or chills. PHYSICAL EXAMINATION: VITAL SIGNS: Temperature 98.3, pulse 76, respirations 18, blood pressure 220/109. Accu-Chek 152. EXTREMITIES: The ulceration of the left lateral lower leg has divided into 2 ulcerations with the largest ulceration measuring 5.3 x 3.2 cm. Granulation tissue was present within the wound margins of both wounds. No purulent drainage is associated with either wound. No erythema of the skin surrounding either wound is present. No maceration of the skin of the periwound of either wound is noted. No significant edema of the left foot or lower leg is present on exam today. A dorsalis pedis pulse is palpable on the left. ASSESSMENT AND PLAN: 1. Chronic venous hypertension with ulceration. Dressing changes of Hydrofera Blue followed by Allevyn will be continued 3 times per week after cleansing and irrigation. The patient will continue to perform his own dressing changes. The patient has been reminded to perform the preceding dressing changes in conjunction with the daily use of his compression garments. As stated above, the patient is to undergo iliac vein stenting by Dr. Wheeler. 2. Lymphedema tarda. The patient has previously acquired a pneumatic pump for in-home lymphedema therapy. The patient will be referred for instruction in wrapping with short stretch dressings to [facility]. 3. Diabetes mellitus. The patient's Accu-Chek in clinic today is 152. The patient has been reminded that for optimal wound healing, his blood glucoses should remain below 150. 4. Hypertension. The patient states that he has a followup appointment with Dr. Vang in regard to his blood pressure tomorrow. Job ID: [id number]
[2018-09-27] MEDS ORDERED: Lidocaine 2% PF 100 mg/5 ml Syringe ONE (15:00)
[2018-09-27] MEDS ORDERED: Sodium Chloride 0.9% 15 ML NEB ONE (15:00)
== END 2018-09-27 09:56 | disposition home or self-care (01) ==
LOC: WCC 09:55
PROVIDERS: ATTEND Family Medicine
DX: I87.312 Chronic venous hypertension (idiopathic) with ulcer of left lower extremity (principal); E11.622 Type 2 diabetes mellitus with other skin ulcer; L97.929 Non-pressure chronic ulcer of unspecified part of left lower leg with unspecified severity; I89.0 Lymphedema, not elsewhere classified
CPT/HCPCS: 36416; 97602; A4218; J2001

== ENCOUNTER 2020-02-21 15:09 | Outpatient (CLI) | payer BC ==
--- NOTE | 2020-02-21 15:31 | RAD ---
XR Hip Rt 1 View History: Pain. No trauma. Comparison: None. Findings: No acute displaced fracture or malalignment. Small acetabular osteophyte formation and subc ortical cysts. Mild enthesopathic changes at the iliopsoas tendon insertion upon the lesser trochanter. Right obtura tor ring is intact. Impression: Mild degenerative change. No acute osseous abnormality.
== END 2020-02-21 15:10 | disposition home or self-care (01) ==
LOC: SCSRAD 15:09
PROVIDERS: ATTEND Family Medicine
DX: M79.604 Pain in right leg (principal); M16.11 Unilateral primary osteoarthritis, right hip
CPT/HCPCS: 87635; U0003